=== PATIENT | male | born 1990 | race African-American/Black ===

== ENCOUNTER 2020-09-26 05:50 | Emergency (ER) | payer MEDICAID ==
[~2020-09-26] VITALS: Ht 182.9 cm; Wt 79.4 kg
== END 2020-09-26 06:05 | disposition left against medical advice (07) ==
LOC: ER 05:53
DX: Z53.21 Procedure and treatment not carried out due to patient leaving prior to being seen by health care provider (principal); R42 Dizziness and giddiness